=== PATIENT | female | born 1970 | race Caucasian/White ===

== ENCOUNTER 2018-07-30 14:18 | Inpatient (IN) | payer BC ==
--- NOTE | 2018-07-30 16:04 | ED ---
General Adult HPI - General Source: patient, RN notes reviewed Mode of arrival: ambulatory Limitations: no limitations <Alejandro Camacho - Last Filed: 07/30/18 16:13> <Gael Ritter - Last Filed: 07/30/18 19:46> - General Chief complaint: Psychiatric Symptoms Stated complaint: Petition Time Seen by Provider: 07/30/18 14:25 - History of Present Illness Initial comments: This is a 48-year-old female who presents to the emergency department because she was petition by her son to come and be evaluated. Patient denies that there is any reason for her to be here. Patient denies any suicidal homicidal ideations. Patient denies hearing any voices or seeing anything abnormal. Patient denies any physical complaints today. Patient denies any chest pain difficulty breathing shortness of breath patient denies any recent fever chills or cough. Patient denies any abdominal pain. Patient denies any headache patient denies numbness weakness. When I started asking specifics about the petition at the son wrote the patient did admit that she believes something possibly aliens are putting thoughts undermined when she wakes up in the morning and is still groggy. Patient states she's verified some of these by going online in checking what they say and they are always true. Patient also states that she can affect other people with her mind just by thinking things as an example she states she was able to calm her son down one day from her bedroom while he was still in his bedroom. This was all included in the petition by the son (Alejandro Camacho) - Related Data Home Medications Medication Instructions Recorded Confirmed Loratadine-Pseudoeph 5-120 mg 1 tab PO Q12HR PRN 07/30/18 07/30/18 [Claritin-D 12 HR] Allergies Allergy/AdvReac Type Severity Reaction Status Date / Time Penicillins Allergy Nausea & Verified 07/30/18 14:39 Vomiting Review of Systems ROS Other: All systems not noted in ROS Statement are negative. <Alejandro Camacho - Last Filed: 07/30/18 16:13> ROS Other: All systems not noted in ROS Statement are negative. <Gael Ritter - Last Filed: 07/30/18 19:46> ROS Statement: Those systems with pertinent positive or pertinent negative responses have been documented in the HPI. Past Medical History Past Medical History: No Reported History History of Any Multi-Drug Resistant Organisms: None Reported Past Surgical History: No Surgical Hx Reported Past Psychological History: No Psychological Hx Reported Smoking Status: Never smoker Past Alcohol Use History: None Reported Past Drug Use History: None Reported <Alejandro Camacho - Last Filed: 07/30/18 16:13> General Exam Limitations: no limitations <Alejandro Camacho - Last Filed: 07/30/18 16:13> <Gael Ritter - Last Filed: 07/30/18 19:46> - General Exam Comments Initial Comments: GENERAL: Patient is well-developed and well-nourished. Patient is nontoxic and well- hydrated and is in no acute distress. ENT: Neck is soft and supple. No significant lymphadenopathy is noted. Neck has full range of motion without eliciting any pain. EYES: The sclera were anicteric and conjunctiva were pink and moist. Extraocular movements were intact and pupils were equal round and reactive to light. Eyelids were unremarkable. PULMONARY: Unlabored respirations. Good breath sounds bilaterally. No audible rales rhonchi or wheezing was noted. CARDIOVASCULAR: There is a regular rate and rhythm without any murmurs gallops or rubs. ABDOMEN: Soft and nontender with normal bowel sounds. No palpable organomegaly was noted. There is no palpable pulsatile mass. SKIN: Skin is clear with no lesions or rashes and otherwise unremarkable. NEUROLOGIC: Patient is alert and oriented x3. Cranial nerves II through XII are grossly intact. Motor and sensory are also intact. Normal speech, volume and content. Symmetrical smile. MUSCULOSKELETAL: Normal extremities with adequate strength and full range of motion. LYMPHATICS: No significant lymphadenopathy is noted PSYCHIATRIC: Patient appears to be having delusions about people are aliens putting thoughts in her mind in her ability to be able to affect people with her mind. (Alejandro Camacho) Vital Signs 07/30/18 14:22 Temperature 98.3 F Pulse Rate 122 H Respiratory 18 Rate Blood Pressure 163/99 O2 Sat by Pulse 98 Oximetry Medical Decision Making <Alejandro Camacho - Last Filed: 07/30/18 16:13> <Gael Ritter - Last Filed: 07/30/18 19:46> - Medical Decision Making The patient was evaluated by psychiatric service she'll be admitted for acute psychosis treatment a clinical certain was filled out by me (Gael Ritter) - Lab Data Lab Results 07/30/18 Range/Units 16:13 Urine Opiates Screen Not Detected (NotDetected) Ur Oxycodone Screen Not Detected (NotDetected) Urine Methadone Screen Not Detected (NotDetected) Ur Propoxyphene Screen Not Detected (NotDetected) Ur Barbiturates Screen Not Detected (NotDetected) U Tricyclic Antidepress Not Detected (NotDetected) Ur Phencyclidine Scrn Not Detected (NotDetected) Ur Amphetamines Screen Not Detected (NotDetected) U Methamphetamines Scrn Not Detected (NotDetected) U Benzodiazepines Scrn Not Detected (NotDetected) Urine Cocaine Screen Not Detected (NotDetected) U Marijuana (THC) Screen Not Detected (NotDetected) Disposition Time of Disposition: 16:14 <Alejandro Camacho - Last Filed: 07/30/18 16:13> <Gael Ritter - Last Filed: 07/30/18 19:46> Clinical Impression: Acute psychosis Disposition: ADMITTED IP TO THIS [facility] Condition: Stable
[2018-07-30 18:52] LABS: Amphetamine Screen,Urine Not Detected (NotDetected); Barbiturate Screen,Urine Not Detected (NotDetected); Benzodiazepines Screen,Urine Not Detected (NotDetected); Cocaine Screen,Urine Not Detected (NotDetected); Methadone Screen, Urine Not Detected (NotDetected); Opiate Screen,Urine Not Detected (NotDetected); Oxycodone Screen, Urine Not Detected (NotDetected); Phencyclidine Screen,Urine Not Detected (NotDetected); Tricyclic Antidepressant,Urine Not Detected (NotDetected); Urn Cannabinoid Scrn Not Detected (NotDetected)
[2018-07-30] MEDS ORDERED: MAGNESIUM HYDROXIDE 2,400 MG/10 ML CUP PO PRN (19:53)
[2018-07-30] MEDS ORDERED: MAG HYDROX/AL HYDROX/SIMETH 30 ML CUP PO PRN (19:53)
[2018-07-30] MEDS ORDERED: ACETAMINOPHEN TAB 325 MG TAB PO PRN (19:53)
[2018-07-30] MEDS ORDERED: LORazepam 1 MG TAB PO PRN (19:53)
--- NOTE | 2018-07-31 06:57 | P.MDCNMH ---
History of Present Illness H&P Date: 07/30/18 Chief Complaint: delusional thoughts 48-year-old female with no significant past medical history Patient brought into the hospital due to delusional thoughts patient has petitioned by her son. Patient confirms the claims that are made by her son, she wakes up with ideas and thoughts in her head and when she starts googling it she finds that they're true she thinks that someone is doing some mind controlling checks on her and at the same time she is able to mind control other people and push thoughts into their heads. Otherwise patient denies any physical complaints at this time she denies any fevers or chills denies any chest pain or trouble breathing denies any suicidal or homicidal ideation denies any similar events in the past requiring hospitalization in the past for mental health problems. Review of Systems Pertinent positives as noted in HPI. All other systems were reviewed and are negative Past Medical History Past Medical History: No Reported History History of Any Multi-Drug Resistant Organisms: None Reported Past Surgical History: No Surgical Hx Reported Past Psychological History: No Psychological Hx Reported Smoking Status: Never smoker Past Alcohol Use History: None Reported Past Drug Use History: None Reported - Past Family History family Family Medical History: No Reported History Medications and Allergies Home Medications Medication Instructions Recorded Confirmed Type Loratadine-Pseudoeph 5-120 mg 1 tab PO Q12HR PRN 07/30/18 07/30/18 History [Claritin-D 12 HR] Allergies Allergy/AdvReac Type Severity Reaction Status Date / Time Penicillins Allergy Nausea & Verified 07/30/18 14:39 Vomiting Physical Exam Vitals: Vital Signs Temp Pulse Resp BP Pulse Ox 07/30/18 14:22 98.3 F 122 H 18 163/99 98 Intake and Output 07/30/18 07/30/18 07/30/18 06:59 14:59 22:59 Other: Weight 70.307 kg Constitutional: No acute distress, conversant, pleasant Eyes: Anicteric sclerae, moist conjunctiva, no lid-lag Pupils equal round reactive to light ENMT: NC/AT Oropharynx clear, no erythema, or exudates Neck: Supple, FROM, no masses, or JVD No carotid bruits No thyromegaly Lungs: Clear to auscultation Clear to percussion Normal respiratory effort, no accessory muscle use Cardiovascular: Heart regular in rate and rhythm, No murmurs, gallops, or rubs No peripheral edema Abdominal: Soft Nontender, no guarding, rebound or rigidity Abdomen moving with respiration Normoactive bowel sounds No hepatomegaly, No splenomegaly No palpable mass No abdominal wall hernia noted Skin: Normal temperature, tone, texture, turgor No induration No subcutaneous nodules No rash, lesions No ulcers Extremities: No digital cyanosis No clubbing Pedal pulses intact and symmetrical Radial pulses intact and symmetrical No calf tenderness Psychiatric: Alert and oriented to person, place and time Appropriate affect Poor judgment Neuro Muscles Strength 5/5 in all 4 extremities Sensation to light touch grossly present throughout Cranial nerves II-XII grossly intact No focal sensory deficits Lymphatics: no palpable cervical or supraclavicular , or inguinal lymph nodes Cranial Nerve Examination - Cranial Nerves Cranial Nerve II- Optic: Intact Cranial Nerve III- Oculomotor: Intact Cranial Nerve IV- Trochlear: Intact Cranial Nerve V- Trigeminal: Intact Cranial Nerve - Abducens: Intact Cranial Nerve VII- Facial: Intact Cranial Nerve VIII- Auditory: Intact Cranial Nerve IX- Glossopharyngeal: Intact Cranial Nerve X- Vagus: Intact Cranial Nerve XI- Accessory: Intact Cranial Nerve XII- Hypoglossal: Intact Assessment and Plan Assessment: 48-year-old female with no significant past medical history petitioned by her son due to delusional thoughts denies any suicidal or homicidal ideation medicine consulted for medical management currently denies any physical complaints or any medical concerns or problems Plan: Delusional thoughts Management per psych Urine drug screen is negative Follow-up labs Low risk for DVT patient is ambulatory Thank you for allowing us to participate in the care of this patient. We will follow peripherally. Do not hesitate to contact us with questions. Someone can be reached from the [facility] hospitalist group at all hours of the day at [phone].
[2018-07-31 07:40] LABS: Basophils # (A) 0.1 k/uL (0-0.2); Basophils % (A) 1 %; Eosinophils # (A) 0.5 k/uL (0-0.7); Eosinophils % (A) 6 %; HCT 44.8 % (34.0-46.0); HGB 14.3 gm/dL (11.4-16.0); Lymphocytes # (A) 2.2 k/uL (1.0-4.8); Lymphocytes % (A) 30 %; MCH 27.4 pg (25.0-35.0); MCV 85.6 fL (80.0-100.0); Mean Platelet Volume 7.5; Monocytes # (A) 0.5 k/uL (0-1.0); Monocytes % (A) 6 %; Neutrophils % (A) 55 %; Platelet Count 246 k/uL (150-450); RBC 5.23 m/uL (3.80-5.40); RDW 14.5 % (11.5-15.5); WBC 7.4 k/uL (3.8-10.6)
[2018-07-31 07:50] LABS: ALT 26 U/L (9-52); AST 20 U/L (14-36); Albumin 4.4 g/dL (3.5-5.0); Alkaline Phosphatase 91 U/L (38-126); Anion Gap 8 mmol/L; Blood Urea Nitrogen 8 mg/dL (7-17); Calcium 9.8 mg/dL (8.4-10.2); Carbon Dioxide 25 mmol/L (22-30); Chloride 108 mmol/L (98-107); Cholesterol 239 mg/dL (<200); Glucose 97 mg/dL (74-99); HDL Cholesterol 69 mg/dL (40-60); LDL Cholesterol,Calculated 126 mg/dL (0-99); Potassium 4.7 mmol/L (3.5-5.1); Sodium 141 mmol/L (137-145); Total Bilirubin 0.5 mg/dL (0.2-1.3); Total Protein 7.2 g/dL (6.3-8.2); Triglycerides 221 mg/dL (<150)
--- NOTE | 2018-07-31 11:50 | P.HP ---
Psychiatric H&P - . H&P Date: 07/31/18 History & Physical: Allergies Allergy/AdvReac Type Severity Reaction Status Date / Time Penicillins Allergy Nausea & Verified 07/30/18 14:39 Vomiting Vital Signs Temp 98.1 F 07/31/18 06:17 Pulse 106 H 07/31/18 06:17 Resp 16 07/31/18 06:17 BP 133/82 07/31/18 06:17 Pulse Ox 98 07/30/18 14:22 Intake & Output 07/30/18 07/31/18 07/31/18 18:59 06:59 18:59 Weight 70.307 kg 75.353 kg Laboratory Last Values WBC 7.4 k/uL (3.8-10.6) 07/31/18 00:42 RBC 5.23 m/uL (3.80-5.40) 07/31/18 00:42 Hgb 14.3 gm/dL (11.4-16.0) 07/31/18 00:42 Hct 44.8 % (34.0-46.0) 07/31/18 00:42 MCV 85.6 fL (80.0-100.0) 07/31/18 00:42 MCH 27.4 pg (25.0-35.0) 07/31/18 00:42 MCHC 32.0 g/dL (31.0-37.0) 07/31/18 00:42 RDW 14.5 % (11.5-15.5) 07/31/18 00:42 Plt Count 246 k/uL (150-450) 07/31/18 00:42 Neutrophils % 55 % 07/31/18 00:42 Lymphocytes % 30 % 07/31/18 00:42 Monocytes % 6 % 07/31/18 00:42 Eosinophils % 6 % 07/31/18 00:42 Basophils % 1 % 07/31/18 00:42 Neutrophils # 4.0 k/uL (1.3-7.7) 07/31/18 00:42 Lymphocytes # 2.2 k/uL (1.0-4.8) 07/31/18 00:42 Monocytes # 0.5 k/uL (0-1.0) 07/31/18 00:42 Eosinophils # 0.5 k/uL (0-0.7) 07/31/18 00:42 Basophils # 0.1 k/uL (0-0.2) 07/31/18 00:42 Sodium 141 mmol/L (137-145) 07/31/18 07:07 Potassium 4.7 mmol/L (3.5-5.1) 07/31/18 07:07 Chloride 108 mmol/L (98-107) H 07/31/18 07:07 Carbon Dioxide 25 mmol/L (22-30) 07/31/18 07:07 Anion Gap 8 mmol/L 07/31/18 07:07 BUN 8 mg/dL (7-17) 07/31/18 07:07 Creatinine 0.83 mg/dL (0.52-1.04) 07/31/18 07:07 Est GFR (CKD-EPI)AfAm >90 (>60 ml/min/1.73 sqM) 07/31/18 07:07 Est GFR (CKD-EPI)NonAf 83 (>60 ml/min/1.73 sqM) 07/31/18 07:07 Glucose 97 mg/dL (74-99) 07/31/18 07:07 Calcium 9.8 mg/dL (8.4-10.2) 07/31/18 07:07 Total Bilirubin 0.5 mg/dL (0.2-1.3) 07/31/18 07:07 AST 20 U/L (14-36) 07/31/18 07:07 ALT 26 U/L (9-52) 07/31/18 07:07 Alkaline Phosphatase 91 U/L (38-126) 07/31/18 07:07 Total Protein 7.2 g/dL (6.3-8.2) 07/31/18 07:07 Albumin 4.4 g/dL (3.5-5.0) 07/31/18 07:07 Triglycerides 221 mg/dL (<150) H 07/31/18 07:07 Cholesterol 239 mg/dL (<200) H 07/31/18 07:07 LDL Cholesterol, Calc 126 mg/dL (0-99) H 07/31/18 07:07 HDL Cholesterol 69 mg/dL (40-60) H 07/31/18 07:07 TSH 2.640 mIU/L (0.465-4.680) 07/31/18 07:07 Urine Opiates Screen Not Detected (NotDetected) 07/30/18 16:13 Ur Oxycodone Screen Not Detected (NotDetected) 07/30/18 16:13 Urine Methadone Screen Not Detected (NotDetected) 07/30/18 16:13 Ur Propoxyphene Screen Not Detected (NotDetected) 07/30/18 16:13 Ur Barbiturates Screen Not Detected (NotDetected) 07/30/18 16:13 U Tricyclic Antidepress Not Detected (NotDetected) 07/30/18 16:13 Ur Phencyclidine Scrn Not Detected (NotDetected) 07/30/18 16:13 Ur Amphetamines Screen Not Detected (NotDetected) 07/30/18 16:13 U Methamphetamines Scrn Not Detected (NotDetected) 07/30/18 16:13 U Benzodiazepines Scrn Not Detected (NotDetected) 07/30/18 16:13 Urine Cocaine Screen Not Detected (NotDetected) 07/30/18 16:13 U Marijuana (THC) Screen Not Detected (NotDetected) 07/30/18 16:13 Assessment and Plan Assessment: This is a 48-year-old female who presents to the emergency department because she was petition by her son to come and be evaluated. Patient denies that there is any reason for her to be here. Patient denies any suicidal homicidal ideation. Patient denies hearing any voices or seeing anything abnormal. Patient denies any physical complaints today. Patient denies any chest pain difficulty breathing shortness of breath patient denies any recent fever chills or cough. Patient denies any abdominal pain. Patient denies any headache patient denies numbness weakness. When I started asking specifics about the petition at the son wrote the patient did admit that she believes something possibly aliens are putting thoughts undermined when she wakes up in the morning and is still groggy. Patient states she's verified some of these by going online in checking what they say and they are always true. Patient also states that she can affect other people with her mind just by thinking things as an example she states she was able to calm her son down one day from her bedroom while he was still in his bedroom. This was all included in the petition by the son. - Related Data Home Medications Medication Instructions Recorded Confirmed Loratadine-Pseudoeph 5-120 mg 1 tab PO Q12HR PRN 07/30/18 07/30/18 [Claritin-D 12 HR] Allergies Allergy/AdvReac Type Severity Reaction Status Date / Time Penicillins Allergy Nausea & Verified 07/30/18 14:39 Vomiting Past Medical History Past Medical History: No Reported History History of Any Multi-Drug Resistant Organisms: None Reported Past Surgical History: No Surgical Hx Reported Past Psychological History: No Psychological Hx Reported Smoking Status: Never smoker Past Alcohol Use History: None Reported Past Drug Use History: None Reported PAST PSYCHIATRIC HISTORY:one prior psychiatric hospitalization CHEMICAL DEPENDENCY HISTORY: denies use of illicit substances and only rare use of alcohol FAMILY PSYCHIATRIC HISTORY: none SOCIAL HISTORY: Pt is currently living in [place], [place] with her 16yo son, mom and . Her 18 yo stepson is there periodically. States that she grew up in [place], [place] with both parents, two sisters and one brother. Grew up very poor and with an hyper-protective mother. Denies any physical or sexual abuse. She is currently in her 3nd marriage for the past 4 years. 2 nd marriage last 4 months. No h/o legal issues. She served in the [employer] from 1985 to 1989. 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 prior psychiatric hospitalizations. Prescribed an antidepressant by her PCP but never took the medication. Reports one suicidal gesture by holding a knife and contemplating suicide but did not act on these thoughts. Musculoskeletal Examination - Abnormal/Involuntary Movements: [none] Strength: [greater than antigravity (greater than/equal to 3/5) in all extremities] Muscle Tone: [no impairment Gait: [grossly normal Station: [grossly normal Mental Status Examination - General Appearance: [well groomed casual, appears stated age Speech/Language: [spontaneous, Attitude/Behavior: [cooperative Mood: [euthymic Affect: [full range Orientation: [time, person, place situation] Thought Content: [wnl Risk Factors: [she is not suicidal (ideations, plan), and/or Homicidal ( ideations, plan), other] Perception: [wnl, hallucinations (auditory, visual, tactile), other] Thought Processes: [goal-oriented Concentration/Attention Span: [wnl] [Per observation and interview with the patient] Recent Memory: [wnl] [ 3 out of 3 in 3 minutes] Remote Memory: [wnl] [past events, as related history] Intelligence: [ above average] [based on history, based on vocabulary, syntax, grammar, and content] Judgement: [good] [per patient's behavior/history of present illness] Insight: [good] [understanding severity of illness/history of present illness] Admitting Diagnosis: [adjustment disorder] Patient Strengths - Personal Skills: [x] Achievements: [x] Steady employment/financial stability: [x] Housing stability: [x] Able to vocalize needs: [x] Values and traditions: [x] Motivation, determination, readiness for change: [x] Resources - social, interpersonal, monetary: [x] Interpersonal relationships and supports available - family, relatives, friends : [x] Patient Limitations: [none Initial Plan of Care: [admit, evaluation, biopsychosocial evaluation, 15 minute checks] Estimated Length of Stay: [1] Initial Discharge Plan: [home Prognosis: [good Justification for Inpatient Hospitalization - Fixed delusion about people and places which may not be true Plan: The patient sign in formal voluntary for admission. She'll be placed on 15 minute checks and expect to participate in thorne milieu therapeutic environment. No psychiatric medications are warranted at this time. Time with Patient: Greater than 30
[2018-08-01 06:37] VITALS: RESP 14
--- NOTE | 2018-08-01 10:51 | P.PN ---
Progress Note - Text Interval history: The patient is found in group she follows me to an interview room. The psychiatric evaluation was reviewed. The petition completed by her son was reviewed. The petition indicates that the patient has had several types of delusional thought. Topics include interaction with aliens the government and other suspicious thinking. The patient states that her son completed this petition out of anger as they had disagreements about his responsibilities at home. She does spontaneously described at length several examples of suspicious and possibly paranoid thinking. She feels that there is this gentleman who she had a relationship with no past who is tampering with her computer activity and employment opportunities. She reports that she has gone to the [facility] for help with no assistance. She states that she hired a principal investigator with no benefit. She is resolved that these thoughts are not paranoid although as she tells the story they seem unlikely. Drug screen is negative. Mental status exam: The patient is alert she is a female appearing her stated age. She has good hygiene grooming. She wears eyeglasses and she is dressed in her own clothing. Speech is fluent spontaneous nonpressured. She is circumstantial almost tangential at times she demonstrates no loose associations or flight of ideas. She reports having no auditory or visual hallucinations. She describes having intuitive senses that may be pre- cognition. She wonders if it's part of her DNA. She describes several examples of suspicious thinking regarding individuals in her life. She feels that she is being monitored and directed via the Internet. She feels when she post something he doesn't get posted. She feels this gentleman is trying to influence her career choices through his government connections. Insight and judgment limited. She reports no suicidal or homicidal ideation intent or plan at this time. She does endorse back in 2015 having suicidal ideation. Although she is verbose during this session she is directable. She demonstrates no verbal or physical aggressiveness. Plan: It appears that the patient is experiencing non-objective thoughts. She describes being monitored/influenced in several ways. Most of what she describes could fit under a diagnosis of delusional disorder. There doesn't seem to be a clear precipitant to this episode. We would consider a diagnosis of brief psychotic disorder but these thoughts appear to be chronic. There is no clear medical etiology, drug screen was negative. She is not endorsing symptoms of depression. She doesn't appear hypomanic or manic. She resides with her son and . Social work is asked to bring her in for a family meeting so we can discern her safety risk. It appears in the past she has had suicidal thoughts and although she is denying those now we want to be sure that her family has not been perceiving an acute safety risk. It appears that she is able to attend her activities of daily living. Vital signs reviewed. She requires continued psychiatric hospitalization for further evaluation. She is currently here voluntarily. She currently does not wish to have a medication prescribed to her.
[2018-08-01 11:02] LABS: Hemoglobin A1C 5.8 % (4.0-6.0)
[2018-08-02 06:22] VITALS: BP 151/88; PULSE 88; TEMP 98.6
--- NOTE | 2018-08-02 10:24 | P.DS ---
Providers Date of admission: 07/30/18 18:28 Expected date of discharge: 08/02/18 Attending physician: Jose Mendoza Consults: 07/30/18 19:53 Consult Physician Routine Consulting Provider: Iman Falcon Consult Reason/Comments: medical management Do you want consulting provider notified?: Already Contacted Primary care physician: Stated None - Discharge Diagnosis(es) (1) Delusional disorder Current Visit: Yes Status: Acute Priority: High Hospital Course: Brief summary of admission note: This patient is a 48-year-old female who was admitted to the mental health out of concern that she was experiencing acute psychosis. She was petitioned by her son reporting she was experiencing several types of paranoid thoughts and had believes that she was almost abducted by aliens and had special abilities. She described having pretty cognitions and believes it's due to her "Rh- status". For full details please refer to Dr. Brownlee psychiatric evaluation dated 07/31/2018. Summary of hospital course: The patient was admitted to the mental health unit on a petition. The patient was allowed to sign in voluntarily. I assumed care of the patient beginning yesterday. I reviewed the psychiatric evaluation the petition and other psychiatric nurse documentation. The patient's denied ever having any suicidal or homicidal ideation intent or plan. She has been able to appropriately maintain hygiene grooming and she has been easily directed while on the mental health unit. She has been eating appropriately she has been sleeping at night and attending groups. She has not demonstrated any agitated behavior on the mental health unit. She does clearly describe thoughts and events that seem unrealistic and most likely delusional. Most of these thoughts are paranoid and persecutory in nature and there are some with a grandiose quality. She did participate in a phone meeting with her facilitated by social work. I reviewed the notes from that meeting and her indicated that he did not feel that there was an acute risk and she could return home. Clearly there are some issues with the patient and her son. She states that he is displacing anger onto her. I did speak with the patient 's via phone with her expressed permission. He indicates that the patient is having on objective thinking and often insights arguments at home. He continues to assert however that there is no imminent safety risk to herself or others and that she is able to care for herself. In the remote past she had had a suicide attempt and he is concerned that that could happen again but she has not reported any feelings of depression or made any statements that lead him to believe she is at an imminent safety risk. We discussed our legal standard on the mental health unit. We do not have criteria to force a continued involuntary hospitalization and involve the court. I carefully reviewed criteria for involuntary psychiatric hospitalization with her . She will be set up to meet with an individual therapist upon discharge and he is encouraged to support her attending those appointments. The patient was seen by internal medicine for routine history and physical exam. We discussed the possibility of using a medication to help her focus unrealistic thinking and she declines. Mental status exam: The patient is an alert female appearing her stated age. She has good hygiene grooming. She is dressed in her own clothing she's wearing eyeglasses she is carrying a book that she has been reading. She indicates that her mood is fine but she would like to be discharged. She is reporting no feelings of depression she is reporting no suicidal ideation intent or plan. She reports no homicidal ideation intent or plan. Thought process can be circumstantial she demonstrates no tangential thinking loose associations or flight of ideas today. She demonstrates no verbal or physical aggressiveness. She reports no auditory or visual hallucinations. She denies having any specific delusions however she demonstrates thoughts that are nonobjective. Those thoughts are likely based on events that actually occurred , such as an identity theft, however now these thoughts have grown to a delusional extent. She is oriented to person place and date. She is able to demonstrate an appropriate range of affect. She spontaneously describes future oriented thinking. Impressions 1. Delusional disorder Plan: The patient does not require continued hospitalization on an involuntary basis. She has signed a notice withdrawing her voluntary status. Although she does demonstrate delusional thoughts she is able to care for herself and she is provided no evidence that she is at acute risk of harming herself or others. She is verbalizing no suicidal or homicidal ideation intent or plan. She is eating adequately she is bathing and attending groups. She has easily been directed on the mental health unit. She reports no use of alcohol marijuana or illicit drugs. We will arrange for her to meet with an individual therapist and she is encouraged to attend that appointment. Her has been involved in a phone family meeting yesterday facilitated by social work and he participated in a phone conversation with myself this morning. We reviewed criteria for involuntary psychiatric admission and he expressed a clear understanding of those criteria after our conversation. She is instructed to return to the hospital any acute safety concerns. She will follow up with her primary care physician as needed. Patient Condition at Discharge: Stable Plan - Discharge Summary New Discharge Prescriptions: Discontinued Loratadine-Pseudoeph 5-120 mg [Claritin-D 12 HR] 1 tab PO Q12HR PRN PRN Reason: Allergy Symptoms Follow up Appointment(s)/Referral(s): None,Stated [Primary Care Provider] - 1-2 days
== END 2018-08-02 15:55 | disposition home or self-care (01) | DRG 885 ==
LOC: EC 14:18 → 3MHU 18:28
PROVIDERS: ADMIT Psychiatry & Neurology Psychiatry; ATTEND Psychiatry & Neurology Psychiatry
DX: F23 Brief psychotic disorder (principal); F43.20 Adjustment disorder, unspecified; Z88.0 Allergy status to penicillin
CPT/HCPCS: 80053; 80061; 80306; 82075; 83036; 84443; 85025; 99285